=== PATIENT | female | born 1995 | race Caucasian/White ===

== ENCOUNTER 2016-11-27 10:43 | Outpatient (CLI) | payer OTHER ==
[~2016-11-27] VITALS: Ht 157.5 cm; Wt 73.4 kg
[~2016-11-27 10:43] MED LIST: HYDR-3498 PO; METO10TA92 PO; ONDA4TAB14 PO; PANT40TA3 PO
[2016-11-27 11:07] VITALS: BP 102/59; PULSE 84; Ht 157.5 cm; Wt 73.4 kg
[2016-11-27] MEDS ORDERED: PRENAT PO (11:09)
[2016-11-27 12:20] LABS: ADD UMIC YES; URINE BILIRUBIN (Dip) NEGATIVE (NEGATIVE); URINE BLOOD (Dip) NEGATIVE (NEGATIVE); URINE COLOR LT. YELLOW (YELLOW); URINE GLUCOSE (Dip) NEGATIVE (NEGATIVE); URINE KETONES (Dip) NEGATIVE (NEGATIVE); URINE LEUKOCYTE ESTERASE (Dip) 1+ (NEGATIVE); URINE NITRITE (Dip) NEGATIVE (NEGATIVE); URINE TOTAL PROTEIN (Dip) NEGATIVE (NEGATIVE); URINE UROBILINOGEN (Dip) 0.2 E.U./dL (0.1-1.0)
[2016-11-27 12:41] LABS: BACTERIA,URINE FEW; SQUAMOUS EPITHELIAL CELL,UR FEW; URINE RBCS NONE SEEN /HPF (0)
--- NOTE | 2016-11-27 13:10 | RADRPT ---
PROCEDURE: Limited obstetric ultrasound CLINICAL INDICATION: PTL TECHNIQUE: Multiple transverse and longitudinal grayscale images of the pelvis were obtained castro sabdominally and endovaginally.. COMPARISON: same day FINDINGS: There is a single live intrauterine gestation in a transverse presentation to maternal left with a f etal heart rate of 144 bpm. The placenta is posterior without evidence of an abruption or placenta p revia. The cervix is closed and measures 4.1 cm in length. RPTAT: AA IMPRESSION: The cervix is closed and measures 4.1 cm in length. Transverse presentation to maternal left. Physician Juvenal Date Time Electronically viewed and signed by Manny Navarro Physician on 11/27/2016 13:10 RA/
--- NOTE | 2016-11-27 14:42 | QN ---
Documentation Comment OB TRIAGE 21 y/o at 20+ weeks with pelvic pain which is resolved with rest. Afebrile VSS Strip Appropriate for GA Cervical length normal Stable D/C home. ELIZABETH SNIDER MD Nov 27, 2016 14:42
== END 2016-11-27 15:00 | disposition home or self-care (01) ==
LOC: OBT 10:43 → L-D 10:47 → OBT 15:00
PROVIDERS: ATTEND Obstetrics & Gynecology
DX: O26.892 Other specified pregnancy related conditions, second trimester (principal); R10.2 Pelvic and perineal pain; O60.02 Preterm labor without delivery, second trimester; Z3A.20 20 weeks gestation of pregnancy
CPT/HCPCS: 76817; 81001; Z7500; G0463

== ENCOUNTER 2017-01-31 11:42 | Outpatient (CLI) | payer SELFPAY ==
[~2017-01-31] VITALS: Ht 157.5 cm; Wt 72.0 kg
[2017-01-31 12:10] VITALS: BP 97/61; PULSE 129; RESP 18; Ht 157.5 cm; Wt 72.0 kg
[2017-01-31 12:52] LABS: BASOPHILS % 0.3 % (0.0-2.0); EOSINOPHILS # 0.2 10^3/ul (0.0-0.5); EOSINOPHILS % 2.6 % (0.0-7.0); HEMATOCRIT 31.1 % (37.0-47.0); HEMOGLOBIN 10.5 g/dl (12.0-16.0); LYMPHOCYTES # 1.7 10^3/ul (0.8-2.9); LYMPHOCYTES % 24.2 % (15.0-51.0); MEAN CORPUSCULAR HEMOGLOBIN 31.3 pg (29.0-33.0); MEAN CORPUSCULAR HGB CONC 33.8 g/dl (32.0-37.0); MEAN CORPUSCULAR VOLUME 92.6 fl (82.0-101.0); MEAN PLATELET VOLUME 10.8 fl (7.4-10.4); MONOCYTE # 0.3 10^3/ul (0.3-0.9); MONOCYTES % 4.6 % (0.0-11.0); NEUTROPHIL # 4.9 10^3/ul (1.6-7.5); NEUTROPHILS % 67.9 % (39.0-77.0); PLATELET COUNT 217 10^3/UL (140-415); RED BLOOD COUNT 3.36 10^6/ul (4.20-5.40); RED CELL DISTRIBUTION WIDTH 12.6 % (11.5-14.5); WHITE BLOOD COUNT 7.2 10^3/ul (4.8-10.8)
[2017-01-31 13:13] LABS: ADD UMIC YES; UR ASCORBIC ACID NEGATIVE (NEGATIVE); UR BACTERIA FEW /HPF (NONE SEEN); UR BILIRUBIN (Dip) NEGATIVE (NEGATIVE); UR BLOOD (Dip) NEGATIVE (NEGATIVE); UR CLARITY CLEAR (CLEAR); UR COLOR YELLOW (YELLOW); UR GLUCOSE (Dip) NEGATIVE (NEGATIVE); UR KETONES (Dip) TRACE mg/dL (NEGATIVE); UR LEUKOCYTE ESTERASE (Dip) 3+ Leu/ul (NEGATIVE); UR NITRITE (Dip) NEGATIVE (NEGATIVE); UR RBC 1 /HPF (0-5); UR SPECIFIC GRAVITY (Dip) 1.009 (1.003-1.030); UR SQUAMOUS EPITHELIAL CELL FEW /HPF (FEW); UR TOTAL PROTEIN (Dip) NEGATIVE (NEGATIVE); UR UROBILINOGEN (Dip) NEGATIVE (NEGATIVE)
--- NOTE | 2017-01-31 13:19 | RADRPT ---
PROCEDURE: US biophysical profile. CLINICAL INDICATION: labor at 29 weeks gestational age. TECHNIQUE: Multiple sonographic images of the uterus were obtained. The images were revi ewed on a PACS workstation. COMPARISON: No prior studies are available for comparison. FINDINGS: There is a single live intrauterine gestation. heart rate is 141 beats per minute. The position is cephalic. The placenta is posterior grade 1 with no abruption or previa. The EDDI is 15.3 cm. (Normal = 5-20 cm.) Breathing Movement: 2 Gross Body Movement: 2 Tone: 2 Qualitative Amniotic Fluid Volume: 2 TOTAL: 8 IMPRESSION: 1. The biophysical score is 8/8. RPTAT: QQ .Amadou Pate MD, Date Time Electronically viewed and signed by .Amadou Pate MD, on 01/31/2017 13:18 .R/
--- NOTE | 2017-01-31 13:33 | RADRPT ---
PROCEDURE: US OB AND ULTRASOUND CERVIX. CLINICAL INDICATION: Size and dates , labor TECHNIQUE: Multiple sonographic images of the pelvis and gravid uterus were obtained. The images were reviewed on a PACS workstation. Transvaginal images of the cervix were also obtained. COMPARISON: 11/27/2016, 01/31/2017 FINDINGS: The cervix has a length of 3.4 cm. There is a single viable intrauterine gestation. Cardiac activity is present with 134 beats per min [place]. There is a vertex presentation. The placenta is posterior. There is no evidence for an abruption or placenta previa. Measurements were made in order to determine age. The results are as follows: BPD =7.5 cm HC =27.2 cm AC =25.9 cm FL =5.4 cm Estimated gestational age of approximately 29 weeks and 4 days based on ultrasound measurements. Clinical age: 29 weeks and 6 days. The estimated date of delivery is 04/14/17, based on ultrasound measurements. The EFW = 1414 g, 27%, based on LMP age. RPTAT: AA IMPRESSION: Single viable intrauterine gestation of approximately 29 weeks and 4 days based on ultrasound measu rements. .Bran Carrion MD, Date Time Electronically viewed and signed by .Bran Carrion MD, MD on 01/31/2017 13:33 .S/
--- NOTE | 2017-01-31 14:41 | TRIAGE ---
OB Triage Datetime Report Generated by CPN: 01/31/2017 14:41 Datetime: 01/31/2017 14:00 Stage of : OB Triage Maternal Assessment Level of Consciousness: Fully Conscious Labor Evaluation Frequency: 2UC/HR Monitor Mode: External Duration (sec)2399: 70-90 Quality: Mild Resting Tone [place]: Relaxed Heart Rate FHR Baseline Rate: 135 Monitor Mode: External US Variability: Moderate 6-25 bpm Accelerations: 15X15 Decelerations: None Pain Assessment Pain Scale: 4 Pain Presence: Constant Pain Type: Ache Pain Location: Other Pain Goal: 3 Pain Relief Measures: Comfort Measures Vaginal Exam Membrane Status: Intact Vaginal Bleeding: None Datetime: 01/31/2017 13:00 Stage of : OB Triage Maternal Assessment Level of Consciousness: Fully Conscious Labor Evaluation Frequency: 4UC/HR Monitor Mode: External Duration (sec)2399: 60-120 Quality: Mild Resting Tone [place]: Relaxed Heart Rate FHR Baseline Rate: 135 Monitor Mode: External US Variability: Moderate 6-25 bpm Accelerations: 15X15 Decelerations: None Category: Category I Pain Assessment Pain Scale: 4 Pain Presence: Constant Pain Type: Ache Pain Location: Other (Annotations: BODY ACHES) Pain Goal: 3 Pain Relief Measures: Comfort Measures Vaginal Exam Membrane Status: Intact Vaginal Bleeding: None Datetime: 01/31/2017 12:07 Assessment Type: Triage Maternal Assessment Level of Consciousness: Fully Conscious DTR's/Clonus: DTRs 2+; No Clonus Headache: Denies Blurred Vision: No Respiratory Effort: Unlabored; Regular Rhythm; Equal Expansion Breath Sounds, Left: Clear and Equal Breath Sounds, Right: Clear and Equal Nausea/Vomiting: Denies RUQ Epigastric Pain: Denies Lower Extremities Edema: None Degree: None Upper Extremities Edema: None Degree: None Facial Edema: None Fall Risk Assessment History of Falling: (0) No Secondary Diagnosis: (0) No Ambulatory Aid: (0) Bedrest/Nurse Assist IV Therapy: (0) No Gait: (0) Normal/Bedrest/Immobile Mental Status: (0) Oriented to Own Ability Fall Score: 0 Fall Risk Score Definition: No Risk: No action required Datetime: 01/31/2017 12:03 Time of Arrival: 01/31/2017 11:40 EGA: 29.6 Arrived By: Ambulatory Arrived From: Office Chief Complaint: PT HERE C/O CRAMPS AND WEAKNESS Movement: Present Contractions: Denies/Absent Rupture of Membranes: Denies Vaginal Bleeding: None Vaginal Discharge: Denies Recent Sexual Intercouse: Denies Abdominal Trauma: Not Applicable Patient Complaints: Cramping; Other Time Provider Notified: 01/31/2017 12:20 Provider Notified: JESSE Initial Plan: UA, CBC, U/S FOR EFW/BPP/CVL Datetime: 01/31/2017 12:00 Monitor Mode: External Monitor Mode: External US Datetime: 11/27/2016 14:34 Stage of : OB Triage Datetime: 11/27/2016 14:02 Labor Evaluation Frequency: 0 Monitor Mode: External Resting Tone [place]: Relaxed Comments: OFF DUE TO GESTATIONAL AGE Pain Assessment Pain Scale: 0 Pain Presence: None/Denies Pain Type: N/A Pain Goal: 3 Pain Relief Measures: Comfort Measures Datetime: 11/27/2016 13:02 Labor Evaluation Frequency: 0 Monitor Mode: External Resting Tone [place]: Relaxed Comments: OFF DUE TO GESTATIONAL AGE Pain Assessment Pain Scale: 0 Pain Presence: None/Denies Pain Type: N/A Pain Goal: 3 Pain Relief Measures: Comfort Measures Datetime: 11/27/2016 12:02 Labor Evaluation Frequency: 0 Monitor Mode: External Resting Tone [place]: Relaxed Comments: OFF DUE TO GESTATIONAL AGE Pain Assessment Pain Scale: 0 Pain Goal: 3 Datetime: 11/27/2016 11:30 Stage of : OB Triage Datetime: 11/27/2016 11:02 Stage of : OB Triage Assessment Type: Triage EGA: 20.4 Maternal Assessment Level of Consciousness: Fully Conscious DTR's/Clonus: DTRs 2+; No Clonus Headache: Denies Blurred Vision: No Respiratory Effort: Unlabored; Regular Rhythm; Equal Expansion Breath Sounds, Left: Clear and Equal Breath Sounds, Right: Clear and Equal Nausea/Vomiting: Denies RUQ Epigastric Pain: Denies Facial Edema: None Temperature Route: Axillary Fall Risk Assessment History of Falling: (0) No Secondary Diagnosis: (0) No Ambulatory Aid: (0) Bedrest/Nurse Assist IV Therapy: (0) No Gait: (0) Normal/Bedrest/Immobile Mental Status: (0) Oriented to Own Ability Fall Score: 0 Fall Risk Score Definition: No Risk: No action required Labor Evaluation Frequency: 0 Monitor Mode: External Resting [place]one [place]: Relaxed Heart Rate FHR Baseline Rate: 150 Monitor Mode: External US Variability: Moderate 6-25 bpm Decelerations: None Pain Assessment Pain Scale: 8 Pain Presence: Intermittent Pain Type: Cramping Pain Location: Perineum Pain Goal: 3 Pain Relief Measures: Comfort Measures Datetime: 11/27/2016 11:00 Time of Arrival: 11/27/2016 10:40 Arrived By: Ambulatory Arrived From: Home Chief Complaint: LOWER ABDOMINAL PAIN SINCE LAST NIGHT DENIES LEAKING OF FLUID, BLEEDING OR UC'S Movement: Present Contractions: Denies/Absent Rupture of Membranes: Denies Vaginal Bleeding: None Vaginal Discharge: Denies Recent Sexual Intercouse: Denies Abdominal Trauma: Not Applicable Patient Complaints: Cramping Time Provider Notified: 11/27/2016 11:30 Provider Notified: TYLOR Initial Plan: MONITOR, CL, U/A
--- NOTE | 2017-01-31 15:42 | PN ---
Triage Information Date/Time 01/31/2017 feeling weak and fatigue. has some cramps. care at [facility]. Has not seen her OB since October 2016. Denies any Dizziness, lightheadadness, SOB or chest pain. Denies any LOF, vaginal bleeding or decreased movement, NO other complaint. Reason for visit: Uterine contractions Weeks of Gestation 29 weeks and 6 days /Para Diabetes: none Hypertention: none Additional information Poor and limited prental care. missed her apps since October 2016 Objective Vital Signs Date Time Temp Pulse Resp B/P Pulse Ox O2 Delivery O2 Flow Rate FiO2 01/31/17 12:10 98.3 129 18 97/61 97 Room Air Heart Rate: 130's Contractions: 6-10 Minutes Apart Exam GA: A&O, NAD Abdomen: Soft, gravid.Fundal height consistent with GA NST : Cat 1, irregular contractions seen initially, spaced out with hydration to one kathleen 10 min Not feeling Results/Medications Result Diagram: 01/31/17 1228 Results 24 hrs Laboratory Tests Test 01/31/17 11:50 01/31/17 12:28 Urine Color YELLOW Urine Clarity CLEAR Urine pH 7.0 Urine Specific [place] 1.009 Urine Ketones TRACE A Urine Nitrite NEGATIVE Urine Bilirubin NEGATIVE Urine Urobilinogen NEGATIVE Urine Leukocyte Esterase 3+ H Urine Microscopic RBC 1 Urine Microscopic WBC 16 H Urine Squamous Epithelial Cells FEW Urine Bacteria FEW A Urine Hemoglobin NEGATIVE Urine Glucose NEGATIVE Urine Total Protein NEGATIVE White Blood Count 7.2 Red Blood Count 3.36 L Hemoglobin 10.5 L Hematocrit 31.1 L Mean Corpuscular Volume 92.6 Mean Corpuscular Hemoglobin 31.3 Mean Corpuscular Hemoglobin Concent 33.8 Red Cell Distribution Width 12.6 Platelet Count 217 Mean Platelet Volume 10.8 H Neutrophils % 67.9 Lymphocytes % 24.2 Monocytes % 4.6 Eosinophils % 2.6 Basophils % 0.3 Nucleated Red Blood Cells % 0.0 Neutrophils # 4.9 Lymphocytes # 1.7 Monocytes # 0.3 Eosinophils # 0.2 Basophils # 0.0 Nucleated Red Blood Cells # 0.0 Imaging Results PROCEDURE: US biophysical profile. CLINICAL INDICATION: labor at 29 weeks gestational age. TECHNIQUE: Multiple sonographic images of the uterus were obtained. The images were reviewed on a PACS workstation. COMPARISON: No prior studies are available for comparison. FINDINGS: There is a single live intrauterine gestation. heart rate is 141 beats per minute. The position is cephalic. The placenta is posterior grade 1 with no abruption or previa. The EDDI is 15.3 cm. (Normal = 5-20 cm.) Breathing Movement: 2 Gross Body Movement: 2 Tone: 2 Qualitative Amniotic Fluid Volume: 2 TOTAL: 8 IMPRESSION: 1. The biophysical score is 8/8. RPTAT: QQ PROCEDURE: US OB AND ULTRASOUND CERVIX. CLINICAL INDICATION: Size and dates , labor TECHNIQUE: Multiple sonographic images of the pelvis and gravid uterus were obtained. The images were reviewed on a PACS workstation. Transvaginal images of the cervix were also obtained. COMPARISON: 11/27/2016, 01/31/2017 FINDINGS: The cervix has a length of 3.4 cm. There is a single viable intrauterine gestation. Cardiac activity is present with 134 beats per minute. There is a vertex presentation. The placenta is posterior. There is no evidence for an abruption or placenta previa. Measurements were made in order to determine age. The results are as follows: BPD = 7.5 cm HC = 27.2 cm AC = 25.9 cm FL = 5.4 cm Estimated gestational age of approximately 29 weeks and 4 days based on ultrasound measurements. Clinical age: 29 weeks and 6 days. The estimated date of delivery is 04/14/17, based on ultrasound measurements. The EFW = 1414 g, 27%, based on LMP age. RPTAT: AA IMPRESSION: Single viable intrauterine gestation of approximately 29 weeks and 4 days based on ultrasound measurements. Disposition: Discharge Assessment/Plan IUP at 29 weeks and 6 days by Stated date consistent with 29 weeks us UTI, False contractions. Due to UTI, resolved with Hydration Mild anemia, advised to continue PNV and iron Discussed regarding treatment, Urine culture sent. Txt given with Keflex 500 mg PO QID and adequate Hydration Follow up in 24-48 hours with her OB clinic labor precaution and kick counts discussed. Patient verbalized understanding plan of care all questions answered to the patient's best satisfaction JUSTIN MOLINA MD Jan 31, 2017 15:42
== END 2017-01-31 14:15 | disposition home or self-care (01) ==
LOC: OBT 11:42 → L-D 11:45 → OBT 14:15
PROVIDERS: ATTEND Obstetrics & Gynecology Obstetrics
DX: O23.43 Unspecified infection of urinary tract in pregnancy, third trimester (principal); O62.9 Abnormality of forces of labor, unspecified; O99.013 Anemia complicating pregnancy, third trimester; Z3A.29 29 weeks gestation of pregnancy
CPT/HCPCS: 76815; 76817; 76818; 81001; 85025; G0463